=== PATIENT | female | born 1960 | race Caucasian/White ===

== ENCOUNTER → 2020-09-10 | Outpatient (CLI) | payer OTHER ==
[~2020-09-10] MED LIST: ACET500P23 PO; ATOR10TA9 PO; CHOL10003 PO; JUICE PLUS FRUIT PO; OMEG-172 PO; OMEP40CA8 PO; PRED20TA PO; PRED5TAB PO; UBID100C10 PO; [UNRECOGNIZED DRUG - OTHER] PO
== END | disposition home or self-care (01) ==
LOC: STAR 09:41
PROVIDERS: ATTEND Surgery
DX: Z01.818 Encounter for other preprocedural examination (principal); Z20.822 Contact with and (suspected) exposure to COVID-19
CPT/HCPCS: 36415; 86800; 93005; U0003; U0005; 84432

== ENCOUNTER 2020-09-16 06:02 | Day surgery (SDC) | payer OTHER ==
[~2020-09-16] VITALS: Ht 162.6 cm; Wt 58.6 kg
[2020-09-16] MEDS ORDERED: CHLORHEXIDINE 15 ML UDC PO ONE (06:30)
[2020-09-16] MEDS ORDERED: LACTATED RINGERS 1,000 ML IV SCH (06:30)
[2020-09-16] MEDS ORDERED: FENTANYL PF 100 MCG/2ML ONE ×2 (07:22→08:27)
[2020-09-16] MEDS ORDERED: MIDAZOLAM 1 MG/ML, 2ML ONE (07:22)
[2020-09-16] MEDS ORDERED: HYDROCORTISONE 100 MG INJ. ONE (07:24)
[2020-09-16] MEDS ORDERED: ROCURONIUM 10MG/ML,5ML ONE (08:07)
[2020-09-16] MEDS ORDERED: CEFAZOLIN 1,000 MG ONE (08:07)
[2020-09-16] MEDS ORDERED: NEOSTIGMINE 1 MG/ML, 10ML ONE (08:07)
[2020-09-16] MEDS ORDERED: PROPOFOL 10 MG/ML, 20ML ONE (08:07)
[2020-09-16] MEDS ORDERED: GLYCOPYRROLATE 0.2MG/1ML, 5ML ONE (08:07)
[2020-09-16] MEDS ORDERED: ONDANSETRON 2MG/ML, 2ML ONE (08:07)
[2020-09-16] MEDS ORDERED: SUCCINYLCHOLINE 20 MG/ML, 10ML ONE (08:07)
[2020-09-16] MEDS ORDERED: ACETAMINOPHEN 650 MG/20.3 ML UDC ONE (08:27)
[2020-09-16] MEDS ORDERED: OXYcodone 5 MG/5 ML ORAL.SOL UDC ONE (08:27)
[2020-09-16] MEDS ORDERED: LABETALOL 5MG/ML, 20ML IV PRN (08:30)
[2020-09-16] MEDS ORDERED: DIAZEPAM 5 MG/ML, 2ML IVPush PRN (08:30)
[2020-09-16] MEDS ORDERED: HYDROmorphone 2 MG/ML, 1ML IVPush PRN (08:30)
[2020-09-16] MEDS ORDERED: hydrALAzine 20 MG/ML, 1ML IV PRN (08:30)
[2020-09-16] MEDS ORDERED: PROMETHAZINE 25 MG/ML, 1ML IV PRN (08:30)
[2020-09-16] MEDS ORDERED: KETOROLAC 30 MG/1 ML IV PRN (08:30)
[2020-09-16] MEDS ORDERED: MEPERIDINE/PF 25MG/0.5ML IVPush PRN (08:30)
[2020-09-16] MEDS ORDERED: OXYcodone 5 MG/5 ML ORAL.SOL UDC PO PRN (08:30)
[2020-09-16] MEDS ORDERED: ACETAMINOPHEN 325 MG TABLET PO PRN (08:30)
[2020-09-16] MEDS ORDERED: ALBUTEROL SULFATE 2.5 MG/3 ML NPPB PRN (08:30)
[2020-09-16] MEDS: FENTANYL PF 100 MCG/2ML IV PRN ×3 (08:35→08:54)
[2020-09-16] MEDS ORDERED: HYDR-2214 PO (09:09)
== END 2020-09-16 10:10 | disposition home or self-care (01) ==
LOC: OUT 06:02
PROVIDERS: ATTEND Surgery
DX: E04.2 Nontoxic multinodular goiter (principal); E78.5 Hyperlipidemia, unspecified; Z91.013 Allergy to seafood; Z88.8 Allergy status to other drugs, medicaments and biological substances; Z79.899 Other long term (current) drug therapy; Z90.710 Acquired absence of both cervix and uterus; Z98.890 Other specified postprocedural states; Z72.89 Other problems related to lifestyle
CPT/HCPCS: 60220; 88307; J0330; J0690; J1720; J2250; J2405; J2704; J2710; J3010; J7120